=== PATIENT | female | born 1990 | race Caucasian/White ===

== ENCOUNTER 2020-06-24 21:37 | Emergency (ER) | payer SELFPAY ==
[~2020-06-24] VITALS: Ht 160 cm; Wt 63.5 kg
--- NOTE | 2020-06-24 21:39 | NUR ---
PT [facility]. TAKEN TO BED 8
[2020-06-24 21:42] VITALS: BP 111/71
[2020-06-24] MEDS ORDERED: OLANZapine 10 MG VIAL IM ONE (22:05)
[2020-06-24] MEDS ORDERED: ZIPRASIDONE MESYLATE 20 MG/ML VIAL IM ONE (22:25)
--- NOTE | 2020-06-24 22:41 | NUR ---
PT MEDIAVTED WITH CLAUDE ORDERED. UNABLE TO START IV OR DRAW LABS AT THIS TIME. WAITING FOR MED TO WORK
[2020-06-24] MEDS ORDERED: MIDAZOLAM 2 MG/2 ML VIAL IM ONE (22:50)
--- NOTE | 2020-06-24 23:00 | NUR ---
PT CONTINUES TO YELL AND THRASH AROUND IN BED, NEW ORDERD RECEIVED AND CARRIED OUT. PT REMAINS ON BEDSIDE MONITOR, RESPIRATIONS REMAIN REGULAR EVEN AND UNLABORED
--- NOTE | 2020-06-24 23:17 | NUR ---
SPOKE TO PT'S BROTHER KENYON WILKINSON, HE WANTED AN UPDATE ON STATUS OF PT. ADVISED WE HAVE BEEN UNABLE TO OBTAIN ANY LABS OR SCANS DUE TO PT BEING SO ALTERED AND AND STRUGGLING WITH STAFF
--- NOTE | 2020-06-24 23:30 | NUR ---
IV LINE ESTABLISHED AND BLOOD GIVEN TO LAB
[2020-06-24 23:47] LABS: BASOPHILS % (AUTO) 0.5 % (0.0-2.0); EOSINOPHILS # (AUTO) 0.1 K/uL (0-0.4); EOSINOPHILS % (AUTO) 1.3 % (0.0-4.0); HEMOGLOBIN 13.1 g/dL (12.0-16.0); LYMPHOCYTES # (AUTO) 2.1 K/uL (2.5-16.5); LYMPHOCYTES % (AUTO) 36.6 % (20.5-51.1); MEAN CORPUSCULAR HEMOGLOBIN 30 pg (27-31); MEAN CORPUSCULAR HGB CONC 34 g/dL (33-37); MEAN CORPUSCULAR VOLUME 89.5 fL (80-94); MONOCYTES # (AUTO) 0.4 K/uL (0.8-1.0); MONOCYTES % (AUTO) 6.8 % (1.7-9.3); NEUTROPHILS # (AUTO) 3.2 K/uL (1.8-7.7); NEUTROPHILS % (AUTO) 54.8 % (42.2-75.2); PLATELET COUNT (AUTO) 279 K/uL (140-450); RED BLOOD CELL COUNT(AUTO) 4.35 MIL/uL (4.20-5.40); RED CELL DISTRIBUTION WIDTH 14.2 % (11.6-13.7); WHITE BLOOD COUNT (AUTO) 5.9 K/uL (4.8-10.8)
--- NOTE | 2020-06-24 23:57 | NUR ---
IN AND OUT CATH DONE AND SPECIMEN TAKEN TO LAB. BED LINENS AND PT PLACED IN GOWN DUE TO PT URINATING ON HERSELF
[2020-06-24 23:58] LABS: ALBUMIN 4.4 g/dL (3.4-5.0); ANION GAP 13.5 (8-16); ASPARTATE AMINOTRANSFERASE 18 U/L (15-37); CARBON DIOXIDE 25.7 mmol/L (21-32); CHLORIDE 106 mmol/L (98-107); CREATININE 0.6 mg/dL (0.6-1.3); GFR ARICAN-AMERICAN 152 mL/min (>90); GLUCOSE 108 mg/dL (74-106); POTASSIUM 3.2 mmol/L (3.5-5.1); SODIUM SERUM 142 mmol/L (136-145); TOTAL BILIRUBIN 0.3 mg/dL (0.0-1.0); UREA NITROGEN, BLOOD 10 mg/dL (7-18)
[2020-06-25 00:03] LABS: ACETAMINOPHEN < 0.5 ug/ml (10-30); SALICYLATE < 2.8 mg/dL (2.8-20.0)
[2020-06-25 00:13] LABS: APPEARANCE,URINE HAZY (CLEAR); BARBITURATE, URINE NEGATIVE ng/ml (NEG <=200); BENZODIAZEPINE, URINE NEGATIVE ng/mL (NEG <=200); BILIRUBIN,URINE NEGATIVE (NEGATIVE); BLOOD, URINE 1+ (NEGATIVE); COCAINE, URINE NEGATIVE ng/mL (NEG <=300); COLOR,URINE YELLOW (YELLOW); LEUKOCYTE ESTERASE ,URINE 3+ (NEGATIVE); NITRITE, URINE NEGATIVE (NEGATIVE); PH,URINE 6.5 (5.0-9.0); UGLUCOSE NEGATIVE (NEGATIVE)
[2020-06-25 00:14] LABS: CANNABINOID, URINE POSITIVE ng/mL (NEG <=50); OPIATE, URINE NEGATIVE ng/mL (NEG <=2000); PHENCYCLIDINE SCREEN,URINE NEGATIVE ng/mL (NEG <=25)
[2020-06-25] MEDS ORDERED: NACL 0.9% 1,000 ML IV ONE (00:30)
[2020-06-25 00:31] LABS: RBC,URINE 0-5 /HPF (0-5); WBC,URINE 20-60 /HPF (0-5)
--- NOTE | 2020-06-25 00:54 | NUR ---
PT TRANSPORTED TO CT ON [facility]
--- NOTE | 2020-06-25 00:54 | NUR ---
PT TAKEN TO CT
[2020-06-25] MEDS ORDERED: ONDANSETRON 4 MG/2 ML VIAL ONE (01:04)
--- NOTE | 2020-06-25 01:04 | NUR ---
PT RETURN FROM CT
[2020-06-25] MEDS ORDERED: ONDANSETRON 4 MG/2 ML VIAL IVP ONE (01:05)
--- NOTE | 2020-06-25 01:09 | NUR ---
PT VOMITED ON HER WAY BACK FROM CT, MEDICATED WITH ZOFRAN. BED LINENS AND GOWN CHANGE AGAIN
--- NOTE | 2020-06-25 02:00 | NUR ---
PT STANDING AT SIDE OF BED, HAD DIARRHEA ON THE FLOOR OF THE ROOM. CLEANED PT UP AND PLACED BACK IN BED. PT A/O X 3 NOW. MORE COOPERATIVE AND FOLLOWS COMMANDS.
--- NOTE | 2020-06-25 03:39 | NUR ---
KENYON BAE [phone] (BROTHER). SPOKE TO KENYON ADVISING PT IS READY FOR DISCHARGE AND NEEDS TRANSPORT HOME, STATES FAMILY MEMBER WILL COME FOR HER
[2020-06-25 04:29] VITALS: BP 105/54
--- NOTE | 2020-06-25 04:30 | NUR ---
Patient discharged with v/s stable. Written and verbal after care instructions given and explained. Patient verbalized understanding. Ambulatory with steady gait. All questions addressed prior to discharge. Advised to follow up with PMD.
== END 2020-06-25 04:27 | disposition home or self-care (01) ==
LOC: MED 21:37
DX: R41.82 Altered mental status, unspecified (principal)
CPT/HCPCS: 36415; 70450; 71045; 80053; 80305; 81001; 81025; 82550; 84484; 85025; 87086; 93005; 96361; 96372; 96374; 99285; G0480; G0482; J2250; J2405; J3486; J3490; J7030